=== PATIENT | male | born 1955 | race African-American/Black ===

== ENCOUNTER 2018-07-22 00:12 | Emergency (ER) | payer MEDICAID, OTHER ==
[~2018-07-22] VITALS: Ht 185.4 cm; Wt 81.6 kg
--- NOTE | 2018-07-22 00:37 | NUR ---
MORRIS FROM HOME. AAOX4. BREATHING EVEN AND UNLABORED. C/O R LOWER BACK PAIN AND R FLANK PAIN. SHARP 11/21. X 3 HOUR AGO. +NAUSEA. TO ER BED 4. MD AT BEDSIDE FOR EVAL. AWAITING ORDERS
[2018-07-22] MEDS ORDERED: MORPHINE SULFATE INJ 4 MG/ML DISP.SYRIN ONE (00:42)
[2018-07-22] MEDS ORDERED: ONDANSETRON HCL/PF 4 MG/2 ML VIAL ONE (00:42)
--- NOTE | 2018-07-22 00:50 | NUR ---
IV LINE OBTAINED ON L AC 18G. BLOOD DRAWN AND GIVEN TO MERCHANDISE SHOPPER AT BEDSIDE
[2018-07-22 00:53] LABS: BASOPHILS # (AUTO) 0.1 /CMM (0.0-0.2); BASOPHILS % (AUTO) 0.7 % (0.0-2.0); EOSINOPHILS % (AUTO) 1.9 % (0.0-6.0); HEMATOCRIT 34 % (39-51); HEMOGLOBIN 11.7 g/dL (13.5-17.5); LYMPHOCYTES # (AUTO) 1.5 /CMM (0.8-4.8); LYMPHOCYTES % (AUTO) 14.2 % (20.0-44.0); MEAN CORPUSCULAR HGB CONC 34 g/dl (31.0-36.0); MEAN CORPUSCULAR VOLUME 94 fL (80-96); MONOCYTES # (AUTO) 0.6 /CMM (0.1-1.30); MONOCYTES % (AUTO) 5.9 % (2.0-12.0); NEUTROPHILS # (AUTO) 8.3 /CMM (1.8-8.9); NEUTROPHILS % (AUTO) 77.3 % (43.0-81.0); PLATELET COUNT (AUTO) 252 /CMM (150-450); RED BLOOD CELL COUNT(AUTO) 3.66 MIL/uL (4.5-6.0); WHITE BLOOD COUNT (AUTO) 10.7 K/uL (4.3-11.0)
[2018-07-22] MEDS ORDERED: ONDANSETRON HCL/PF 4 MG/2 ML VIAL IVP ONE (01:00)
[2018-07-22] MEDS ORDERED: MORPHINE SULFATE INJ 2 MG/ML DISP.SYRIN IV ONE (01:00)
[2018-07-22] MEDS ORDERED: IV NS 0.9% 1,000 ML BAG IV ONE (01:00)
[2018-07-22 01:01] LABS: CALCIUM, SERUM 8.8 mg/dL (8.5-10.1); CREATININE 1.4 mg/dL (0.6-1.3)
[2018-07-22 01:06] LABS: ALBUMIN 3.6 g/dL (3.4-5.0); BILIRUBIN,DIRECT 0.2 mg/dL (0.0-0.2); BILIRUBIN,TOTAL 1.1 mg/dL (0.2-1.0)
[2018-07-22 01:22] LABS: APPEARANCE,URINE Clear (CLEAR); BILIRUBIN,URINE Negative (NEGATIVE); BLOOD, URINE Negative Ery/uL (NEGATIVE); COLOR,URINE Yellow (YELLOW); KETONES,URINE Negative (NEGATIVE); LEUKOCYTE ESTERASE ,URINE Negative (NEGATIVE); NITRITE, URINE Negative (NEGATIVE); PROTEIN,URINE Negative (NEGATIVE); UGLUCOSE Negative (NEGATIVE); UROBILINOGEN,URINE 0.2 EU/dL (0.2)
[2018-07-22] MEDS ORDERED: KETOROLAC TROMETHAMINE INJ 30 MG/ML VIAL ONE (01:22)
[2018-07-22] MEDS ORDERED: POTASSIUM CHLORIDE 20 MEQ TAB.PRT.SR PO ONE ×3 (01:27→01:31)
[2018-07-22] MEDS ORDERED: KETOROLAC TROMETHAMINE INJ 30 MG/ML VIAL IV ONE (01:30)
[2018-07-22 01:44] VITALS: BP 144/81
== END 2018-07-22 01:44 | disposition home or self-care (01) ==
LOC: ER 00:16
DX: S39.012A Strain of muscle, fascia and tendon of lower back, initial encounter (principal); E87.6 Hypokalemia; N28.9 Disorder of kidney and ureter, unspecified; D64.9 Anemia, unspecified; I10 Essential (primary) hypertension; J45.909 Unspecified asthma, uncomplicated; Z60.2 Problems related to living alone; X50.0XXA Overexertion from strenuous movement or load, initial encounter; Y93.89 Activity, other specified; Y92.89 Other specified places as the place of occurrence of the external cause; Y99.8 Other external cause status
CPT/HCPCS: 36415; 80048; 80076; 81001; 85025; 96374; 96375; 99283; J1885; J2270; J2405; J7030; 81000-TC

== ENCOUNTER 2020-07-09 22:53 | Emergency (ER) | payer OTHER ==
[~2020-07-09] VITALS: Ht 182.9 cm; Wt 90.7 kg
[2020-07-09 22:54] VITALS: BP 132/84
[2020-07-09] MEDS ORDERED: BACI/NEOM/POLY B OINT PKT 1 UDPKT PACKET TP ONE (23:30)
== END 2020-07-09 23:20 | disposition home or self-care (01) ==
LOC: ER 22:55
DX: S00.81XA Abrasion of other part of head, initial encounter (principal); I10 Essential (primary) hypertension; J45.909 Unspecified asthma, uncomplicated; M19.90 Unspecified osteoarthritis, unspecified site; Z60.2 Problems related to living alone; W34.09XA Accidental discharge from other specified firearms, initial encounter; Y93.89 Activity, other specified; Y92.89 Other specified places as the place of occurrence of the external cause; Y99.8 Other external cause status

== ENCOUNTER 2024-12-26 18:04 | Emergency (ER) | payer OTHER ==
[~2024-12-26] VITALS: Ht 185.4 cm; Wt 81.6 kg
[2024-12-26 18:26] VITALS: O2SAT 95
[2024-12-26] MEDS ORDERED: ALBUTEROL FS 2.5 MG/3 ML VIAL.NEB ONE (18:26)
[2024-12-26] MEDS ORDERED: IPRATROPIUM NEB FS 0.5 MG/2.5 ML AMPUL.NEB ONE (18:26)
[2024-12-26] MEDS: IPRATROPIUM NEB FS 0.5 MG/2.5 ML AMPUL.NEB NEB ONE (18:30)
[2024-12-26] MEDS: ALBUTEROL FS 2.5 MG/3 ML VIAL.NEB NEB ONE (18:31)
[2024-12-26 18:41] VITALS: O2SAT 99
[2024-12-26] MEDS ORDERED: NITROGLYCERIN PACKET 1 GM PACKET ONE (18:42)
[2024-12-26] MEDS ORDERED: FUROSEMIDE 40 MG/4 ML VIAL ONE (18:42)
[2024-12-26] MEDS ORDERED: ASPIRIN 325 MG TABLET ONE (18:43)
[2024-12-26] MEDS: FUROSEMIDE 40 MG/4 ML VIAL IV ONE (18:45)
[2024-12-26] MEDS: ASPIRIN 325 MG TABLET PO ONE (18:50)
[2024-12-26] MEDS: NITROGLYCERIN PACKET 1 GM PACKET TOP ONE (18:50)
[2024-12-26 18:51] LABS: PLATELET COUNT (AUTO) 232 K/uL (150-450); RED BLOOD CELL COUNT(AUTO) 3.51 MIL/uL (4.5-6.0); RED CELL DISTRIBUTION WIDTH 15.9 % (11.5-15.0); WHITE BLOOD COUNT (AUTO) 8.0 K/uL (4.3-11.0)
[2024-12-26 18:53] LABS: CALCIUM, SERUM 8.8 mg/dL (8.5-10.1); CREATININE 1.8 mg/dL (0.6-1.3); SODIUM SERUM 141 mmol/L (136-145); UREA NITROGEN, BLOOD 31 mg/dL (7-18)
[2024-12-26 19:06] LABS: NT-PRO BNP 18644 pg/mL (0-125)
[2024-12-26 21:15] VITALS: BP 158/110; TEMP 97.8; O2SAT 96
== END 2024-12-27 01:00 | disposition short-term general hospital (02) ==
LOC: ER 18:07
DX: I21.4 Non-ST elevation (NSTEMI) myocardial infarction (principal); I11.0 Hypertensive heart disease with heart failure; I50.9 Heart failure, unspecified; J45.901 Unspecified asthma with (acute) exacerbation; M19.90 Unspecified osteoarthritis, unspecified site; N40.0 Benign prostatic hyperplasia without lower urinary tract symptoms
CPT/HCPCS: 99285; 96374; 71045; 96375; 93005 ×2; 85025; 80048; 36415; 84484 ×2; 83880; 94640; J2919; J1938